=== PATIENT | female | born 1955 | race Hispanic/Latino ===

== ENCOUNTER 2021-11-13 12:36 | Emergency (ER) | payer OTHER, MEDICARE, SELFPAY ==
[2021-11-13] VITALS (37 sets, daily range): BP systolic 136–212; BP diastolic 69–95; PULSE 55–76; RESP 12–25; TEMP 36.6; O2SAT 95–100; BMI 30.7
--- NOTE | 2021-11-13 12:51 | DI.RAD.S_ITS ---
PROCEDURE: XR CHEST 1V INDICATIONS: chest pain TECHNIQUE: One view of the chest was acquired. COMPARISON: None. FINDINGS: Surgical changes and devices: None. Lungs and pleura: Lungs are clear. No pleural effusions or pneumothorax. Mediastinum: Mediastinal contours appear normal. Heart size is normal. Bones and chest wall: No suspicious bony lesions. Overlying soft tissues appear unremarkable. IMPRESSION: No acute cardiopulmonary abnormality. Dictated by: Marcial Lama M.D. on 11/13/2021 at 13:06 Approved by: Marcial Lama M.D. on 11/13/2021 at 13:12
[2021-11-13 13:45] LABS: Appearance Urine UA SL CLOUDY; Bilirubin Urine UA NEGATIVE (NEGATIVE); Color Urine UA YELLOW; Glucose Urine UA NEGATIVE (Negative); Ketones Urine UA NEGATIVE (NEGATIVE); Leukocyte Esterase Urine UA NEGATIVE (NEGATIVE); Nitrite Urine UA NEGATIVE (Negative); Occult Blood Urine UA NEGATIVE (Negative); Protein Urine UA NEGATIVE (Negative); Urobilinogen Urine UA 0.2 E.U./dL (0.2)
[2021-11-13 13:48] LABS: Add Manual Diff / Slide Review NO; Basophils Absolute Auto 100 /uL (0-100); Basophils Percent Auto 1.1 % (0-2); Eosinophils Absolute Auto 100 /uL (0-450); Hematocrit 39.5 % (36-46); Hemoglobin 13.4 g/dL (12.0-16.0); Lymphocytes Absolute Auto 1300 /uL (1100-4500); Lymphocytes Percent Auto 25.3 % (25-40); Mean Corpuscular HGB Conc 33.9 % (30-36); Mean Corpuscular Hemoglobin 29.9 PG (26-34); Mean Corpuscular Volume 88.4 fL (80-100); Monocytes Absolute Auto 300 /uL (0-900); Monocytes Percent Auto 6.4 % (3-14); Neutrophils Absolute Auto 3500 /uL (1500-7000); Neutrophils Percent Auto 66.2 % (50-75); Platelet Count 255 X10^3/uL (150-400); Red Blood Cell Count 4.47 X10^6/uL (4.0-5.2); Red Cell Distribution Width 13.5 % (11.6-14.8); White Blood Cell Count 5.2 X10^3/uL (4.5-11.0)
[2021-11-13 13:51] LABS: INR 4.2 (0.9-1.3); Prothrombin Time 49.2 SECONDS (10.1-12.7)
[2021-11-13 13:52] LABS: RBC Urine None Seen (0-5/HPF); Squamous Epithelial Cell Urine 1-5 /HPF (0-5/HPF); WBC Urine 1-5/HPF (0-5/HPF)
[2021-11-13 13:53] LABS: Bacteria Urine Occasional (0-1); Culture Indicated Urine Cult Not Indicated
[2021-11-13 13:58] LABS: Alanine Aminotransferase 17 IU/L (<35); Albumin 4.2 g/dL (3.5-5.0); Albumin Globulin Ratio 1.3 (1.0-2.8); Alkaline Phosphatase 64 U/L (38-126); Aspartate Aminotransferase 28 IU/L (14-36); BUN Creatinine Ratio 20.7 (6-22); Bilirubin Total 0.4 mg/dL (0.2-1.3); Blood Urea Nitrogen 18 mg/dL (7-17); Calcium 8.8 mg/dL (8.4-10.2); Carbon Dioxide 27 mmol/L (22-32); Chloride 107 mmol/L (98-107); Creatine Kinase 160 U/L (30-135); Estimated Glomerular Filt Rate > 60 mL/min (>60); Globulin 3.3 g/dL (1.7-4.1); Glucose 99 mg/dL (80-110); HEMOLYSIS < 15 (0-50); Lipase 129 U/L (23-300); Magnesium 2.2 mg/dL (1.6-2.3); Potassium 4.2 mmol/L (3.4-5.1); Sodium 140 mmol/L (137-145); Total Protein 7.5 g/dL (6.3-8.2)
[2021-11-13 14:02] LABS: COVID19 -Nasal RAPID Negative (Negative); PTT Partial Thromboplastin Tim 47 SECONDS (26-36)
[2021-11-13 14:12] LABS: CKMB % Relative Index 1.1 % (1.5-5.0)
--- NOTE | 2021-11-13 15:08 | ED_ITS ---
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 She actually lives in [place] she flew here about 10 days ago she drove to [place] drove home. Yesterday she noticed that she had mild chest discomfort on the left side she was able to rub it. She thought nothing of it. Today well all walking on flat ground she had chest tightness he was mildly short of breath. It did not quite go away but she was able to get back home and rest. She was then highly encouraged by family members to come to the ED for evaluation. She is no longer having any chest discomfort. Related Data Home Medications Medication Instructions Recorded Confirmed levothyroxine 88 mcg tablet 88 mcg PO DAILY 11/13/21 11/13/21 liothyronine 5 mcg tablet 5 mcg PO DAILY 11/13/21 11/13/21 montelukast 10 mg tablet 10 mg PO BEDTIME 11/13/21 11/13/21 warfarin 4 mg tablet 8 mg PO DAILY 11/13/21 11/13/21 Allergies Allergy/AdvReac Type Severity Reaction Status Date / Time benzocaine Allergy Verified 11/14/21 16:34 ciprofloxacin Allergy Verified 11/14/21 16:34 hydromorphone Allergy Verified 11/14/21 16:34 Iodinated Contrast Media Allergy Verified 11/14/21 16:34 levofloxacin Allergy Verified 11/14/21 16:34 ondansetron Allergy Verified 11/14/21 16:34 oxycodone Allergy Verified 11/14/21 16:34 tramadol Allergy Verified 11/14/21 16:34 trazodone Allergy Verified 11/14/21 16:34 ketorolac AdvReac Verified 11/14/21 16:34 Review of Systems <DO Subha Jules Last Filed: 11/14/21 19:23> Review of Systems Narrative: GENERAL: Denies chills, fatigue, malaise, fever, sweats, travel HEENT: Denies sinus pain, ear pain, sore throat, difficulty swallowing, neck pain RESPIRATORY: Denies dyspnea, cough, wheezing, hemoptysis, sputum. CARDIOVASCULAR: Denies chest pain, palpitations, orthopnea, edema GASTROINTESTINAL: Denies nausea, vomiting, abdominal pain, diarrhea, constipation, melena. : Denies dysuria, frequency, incontinence, hematuria, urinary retention, flank pain. MUSCULOSKELETAL: Denies weakness, joint pain, or bony pain SKIN: No rash, no erythema, no pruritus NEUROLOGIC: Denies weakness, dizziness, headache, numbness, change in speech, co nfusion PSYCHIATRIC: No concerning psychosocial issues. 12 point review of systems is negative except for those stated above and HPI Patient History <Fang Tse DO - Last Filed: 11/14/21 19:23> Social History Smoking Status: Former smoker Smoking Status: Former smoker alcohol intake frequency: holidays/special occasions only Substance Use Type: does not use Exam <Fang Tse DO - Last Filed: 11/14/21 19:23> Initial Vital Signs Initial Vital Signs: Vital Signs Temperature 97.8 F 11/13/21 12:44 Pulse Rate 67 11/13/21 12:44 Respiratory Rate 16 11/13/21 12:44 Blood Pressure 198/85 H 11/13/21 12:44 Pulse Oximetry 98 11/13/21 12:44 Oxygen Delivery Method 11/13/21 12:44 GENERAL: Alert pleasant 66-year-old female HEENT: Head atraumatic,EOMI, pupils reactive, face symmetric, moist mucous membranes CARDIOVASCULAR: Regular rate and rhythm without murmurs, rubs or gallops. RESPIRATORY: Breath sounds equal bilaterally, no wheezes rales or rhonchi. ABDOMEN: Soft, nontender. Normoactive bowel sounds all 4 quadrants. No guarding or rebound. EXTREMITIES: Normal range of motion, no clubbing or edema. Neurovascularly intact NEUROLOGICAL: Alert and oriented x4.Normal gait and speech. SKIN: Warm, dry, no laceration, no petechiae, no rashes or lesions. <Moise Phillips DO - Last Filed: 11/15/21 03:35> Initial Vital Signs Initial Vital Signs: Vital Signs Temperature 97.8 F 11/13/21 12:44 Pulse Rate 67 11/13/21 12:44 Respiratory Rate 16 11/13/21 12:44 Blood Pressure 198/85 H 11/13/21 12:44 Pulse Oximetry 98 11/13/21 12:44 Oxygen Delivery Method 11/13/21 12:44 Course <Fang Tse DO - Last Filed: 11/14/21 19:23> Orders Ordered: Discontinued Medications Acetaminophen (Acetaminophen 325 Mg Tablet) 650 mg PO NOW ONE Stop: 11/14/21 13:55 Last Admin: 11/14/21 14:00 Dose: 650 mg Documented By: AT Chlorthalidone (Chlorthalidone 25 Mg Tablet) 25 mg PO NOW ONE Stop: 11/13/21 19:19 Last Admin: 11/13/21 20:16 Dose: 25 mg Documented By: BS Chlorthalidone (Chlorthalidone 25 Mg Tablet) 25 mg PO NOW ONE Stop: 11/14/21 08:02 Last Admin: 11/14/21 08:13 Dose: 25 mg Documented By: AMU Heparin Sodium/Dextrose (Heparin Drip) 25,000 unit in 500 mls @ 20 mls/hr IV CONT LEEANNE; Protocol Last Titration: 11/14/21 19:17 Dose: 0 units/hr, 0 mls/hr Documented By: Titration: 11/14/21 15:17 Dose: 1,000 units/hr, 20 mls/hr Documented By: Admin: 11/14/21 08:02 Dose: 1,000 units/hr, 20 mls/hr Documented By: AMU Vital Signs Vital signs: Vital Signs - 8 hr 11/14/21 11:30 11/14/21 12:00 11/14/21 12:30 Pulse Rate 63 62 61 Respiratory Rate 16 21 16 Blood Pressure Pulse Oximetry 96 96 95 Oxygen Delivery Method 11/14/21 13:00 11/14/21 13:33 11/14/21 13:34 Pulse Rate 67 66 Respiratory Rate 17 12 Blood Pressure Pulse Oximetry 97 98 98 Oxygen Delivery Method 11/14/21 13:34 11/14/21 14:00 11/14/21 14:30 Pulse Rate 74 59 L Respiratory Rate 24 27 H Blood Pressure 147/76 H Pulse Oximetry 97 97 Oxygen Delivery Method 11/14/21 15:00 11/14/21 15:30 11/14/21 15:39 Pulse Rate 64 66 79 Respiratory Rate 24 19 40 H Blood Pressure Pulse Oximetry 97 96 97 Oxygen Delivery Method 11/14/21 15:39 11/14/21 16:00 11/14/21 16:00 Pulse Rate 74 Respiratory Rate 19 Blood Pressure 140/73 130/75 Pulse Oximetry 96 Oxygen Delivery Method 11/14/21 16:30 11/14/21 17:00 11/14/21 17:30 Pulse Rate 71 74 72 Respiratory Rate 21 11 L 22 Blood Pressure Pulse Oximetry 97 98 95 Oxygen Delivery Method 11/14/21 18:00 11/14/21 18:25 11/14/21 18:25 Pulse Rate 63 63 Respiratory Rate 30 H 25 H Blood Pressure 142/81 H Pulse Oximetry 97 97 Oxygen Delivery Method Room Air 11/14/21 18:30 Pulse Rate 62 Respiratory Rate 26 H Blood Pressure Pulse Oximetry 96 Oxygen Delivery Method <Moise Phillips DO - Last Filed: 11/15/21 03:35> Orders Ordered: Discontinued Medications Acetaminophen (Acetaminophen 325 Mg Tablet) 650 mg PO NOW ONE Stop: 11/14/21 13:55 Last Admin: 11/14/21 14:00 Dose: 650 mg Documented By: AT Chlorthalidone (Chlorthalidone 25 Mg Tablet) 25 mg PO NOW ONE Stop: 11/13/21 19:19 Last Admin: 11/13/21 20:16 Dose: 25 mg Documented By: BS Chlorthalidone (Chlorthalidone 25 Mg Tablet) 25 mg PO NOW ONE Stop: 11/14/21 08:02 Last Admin: 11/14/21 08:13 Dose: 25 mg Documented By: AMU Heparin Sodium/Dextrose (Heparin Drip) 25,000 unit in 500 mls @ 20 mls/hr IV CONT LEEANNE; Protocol Last Titration: 11/14/21 19:17 Dose: 0 units/hr, 0 mls/hr Documented By: Titration: 11/14/21 15:17 Dose: 1,000 units/hr, 20 mls/hr Documented By: Admin: 11/14/21 08:02 Dose: 1,000 units/hr, 20 mls/hr Documented By: AMU Vital Signs Vital signs: Vital Signs - 8 hr 11/14/21 11:30 11/14/21 12:00 11/14/21 12:30 Pulse Rate 63 62 61 Respiratory Rate 16 21 16 Blood Pressure Pulse Oximetry 96 96 95 Oxygen Delivery Method 11/14/21 13:00 11/14/21 13:33 11/14/21 13:34 Pulse Rate 67 66 Respiratory Rate 17 12 Blood Pressure Pulse Oximetry 97 98 98 Oxygen Delivery Method 11/14/21 13:34 11/14/21 14:00 11/14/21 14:30 Pulse Rate 74 59 L Respiratory Rate 24 27 H Blood Pressure 147/76 H Pulse Oximetry 97 97 Oxygen Delivery Method 11/14/21 15:00 11/14/21 15:30 11/14/21 15:39 Pulse Rate 64 66 79 Respiratory Rate 24 19 40 H Blood Pressure Pulse Oximetry 97 96 97 Oxygen Delivery Method 11/14/21 15:39 11/14/21 16:00 11/14/21 16:00 Pulse Rate 74 Respiratory Rate 19 Blood Pressure 140/73 130/75 Pulse Oximetry 96 Oxygen Delivery Method 11/14/21 16:30 11/14/21 17:00 11/14/21 17:30 Pulse Rate 71 74 72 Respiratory Rate 21 11 L 22 Blood Pressure Pulse Oximetry 97 98 95 Oxygen Delivery Method 11/14/21 18:00 11/14/21 18:25 11/14/21 18:25 Pulse Rate 63 63 Respiratory Rate 30 H 25 H Blood Pressure 142/81 H Pulse Oximetry 97 97 Oxygen Delivery Method Room Air 11/14/21 18:30 Pulse Rate 62 Respiratory Rate 26 H Blood Pressure Pulse Oximetry 96 Oxygen Delivery Method MDM - Chest Pain <Fang Tse, DO - Last Filed: 11/14/21 19:23> Lab Data Result diagrams: 11/14/21 06:10 11/14/21 06:10 Labs: Lab Results 11/13/21 11/13/21 11/13/21 Range/Units 13:27 13:27 13:27 WBC 5.2 (4.5-11.0) X10^3/uL RBC 4.47 (4.0-5.2) X10^6/uL Hgb 13.4 (12.0-16.0) g/dL Hct 39.5 (36-46) % MCV 88.4 (80-100) fL MCH 29.9 (26-34) PG MCHC 33.9 (30-36) % RDW 13.5 (11.6-14.8) % Plt Count 255 (150-400) X10^3/uL Neut % (Auto) 66.2 (50-75) % Lymph % (Auto) 25.3 (25-40) % [place] % (Auto) 6.4 (3-14) % Eos % (Auto) 1.0 L (2-4) % Baso % (Auto) 1.1 (0-2) % Neut # (Auto) 3500 (2449-3624) /uL Lymph # (Auto) 1300 (8461-7789) /uL [place] # (Auto) 300 (0-900) /uL Eos # (Auto) 100 (0-450) /uL Baso # (Auto) 100 (0-100) /uL PT (10.1-12.7) SECONDS INR (0.9-1.3) APTT 47 H (26-36) SECONDS Sodium (137-145) mmol/L Potassium (3.4-5.1) mmol/L Chloride (98-107) mmol/L Carbon Dioxide (22-32) mmol/L BUN (7-17) mg/dL Creatinine (0.52-1.04) mg/dL Estimated GFR (>60) mL/min BUN/Creatinine Ratio (6-22) Glucose (80-110) mg/dL Calcium (8.4-10.2) mg/dL Magnesium (1.6-2.3) mg/dL Total Bilirubin (0.2-1.3) mg/dL AST (14-36) IU/L ALT (<35) IU/L Alkaline Phosphatase (38-126) U/L Total Creatine Kinase (30-135) U/L CK-MB (CK-2) (<2.37) ng/mL CK-MB (CK-2) Rel Index (1.5-5.0) % Troponin I (0.01-0.034) ng/mL NT-Pro-B Natriuret Pep (<125) pg/mL Total Protein (6.3-8.2) g/dL Albumin (3.5-5.0) g/dL Globulin (1.7-4.1) g/dL Albumin/Globulin Ratio (1.0-2.8) Lipase (23-300) U/L Urine Color Urine Appearance Urine pH (4.5-8.0) Ur Specific [place] (1.000-1.035) Urine Protein (Negative) Urine Glucose (UA) (Negative) g/dL Urine Ketones (NEGATIVE) Urine Occult Blood (Negative) Urine Nitrate (Negative) Urine Bilirubin (NEGATIVE) Urine Urobilinogen (0.2) E.U./dL Ur Leukocyte Esterase (NEGATIVE) Urine RBC (0-5/HPF) Urine WBC (0-5/HPF) Ur Squamous Epith Cells (0-5/HPF) Urine Bacteria (None) Ur Culture Indicated? SARS-CoV-2 (PCR) Negative (Negative) 11/13/21 11/13/21 11/13/21 Range/Units 13:27 13:27 13:27 WBC (4.5-11.0) X10^3/uL RBC (4.0-5.2) X10^6/uL Hgb (12.0-16.0) g/dL Hct (36-46) % MCV (80-100) fL MCH (26-34) PG MCHC (30-36) % RDW (11.6-14.8) % Plt Count (150-400) X10^3/uL Neut % (Auto) (50-75) % Lymph % (Auto) (25-40) % [place] % (Auto) (3-14) % Eos % (Auto) (2-4) % Baso % (Auto) (0-2) % Neut # (Auto) (7919-5469) /uL Lymph # (Auto) (2936-3928) /uL [place] # (Auto) (0-900) /uL Eos # (Auto) (0-450) /uL Baso # (Auto) (0-100) /uL PT 49.2 H (10.1-12.7) SECONDS INR 4.2 H (0.9-1.3) APTT (26-36) SECONDS Sodium 140 (137-145) mmol/L Potassium 4.2 (3.4-5.1) mmol/L Chloride 107 (98-107) mmol/L Carbon Dioxide 27 (22-32) mmol/L BUN 18 H (7-17) mg/dL Creatinine 0.87 (0.52-1.04) mg/dL Estimated GFR > 60 (>60) mL/min BUN/Creatinine Ratio 20.7 (6-22) Glucose 99 (80-110) mg/dL Calcium 8.8 (8.4-10.2) mg/dL Magnesium 2.2 (1.6-2.3) mg/dL Total Bilirubin 0.4 (0.2-1.3) mg/dL AST 28 (14-36) IU/L ALT 17 (<35) IU/L Alkaline Phosphatase 64 (38-126) U/L Total Creatine Kinase 160 H (30-135) U/L CK-MB (CK-2) 1.80 (<2.37) ng/mL CK-MB (CK-2) Rel Index 1.1 L (1.5-5.0) % Troponin I 0.060 H (0.01-0.034) ng/mL NT-Pro-B Natriuret Pep (<125) pg/mL Total Protein 7.5 (6.3-8.2) g/dL Albumin 4.2 (3.5-5.0) g/dL Globulin 3.3 (1.7-4.1) g/dL Albumin/Globulin Ratio 1.3 (1.0-2.8) Lipase 129 (23-300) U/L Urine Color Yellow Urine Appearance Sl cloudy Urine pH 6.0 (4.5-8.0) Ur Specific [place] 1.020 (1.000-1.035) Urine Protein Negative (Negative) Urine Glucose (UA) Negative (Negative) g/dL Urine Ketones Negative (NEGATIVE) Urine Occult Blood Negative (Negative) Urine Nitrate Negative (Negative) Urine Bilirubin Negative (NEGATIVE) Urine Urobilinogen 0.2 (0.2) E.U./dL Ur Leukocyte Esterase Negative (NEGATIVE) Urine RBC None seen (0-5/HPF) Urine WBC 1-5/hpf (0-5/HPF) Ur Squamous Epith Cells 1-5 /hpf (0-5/HPF) Urine Bacteria Occasional (0-1) (None) Ur Culture Indicated? Cult not indicated SARS-CoV-2 (PCR) (Negative) 11/13/21 11/13/21 11/13/21 Range/Units 15:08 15:08 18:00 WBC (4.5-11.0) X10^3/uL RBC (4.0-5.2) X10^6/uL Hgb (12.0-16.0) g/dL Hct (36-46) % MCV (80-100) fL MCH (26-34) PG MCHC (30-36) % RDW (11.6-14.8) % Plt Count (150-400) X10^3/uL Neut % (Auto) (50-75) % Lymph % (Auto) (25-40) % [place] % (Auto) (3-14) % Eos % (Auto) (2-4) % Baso % (Auto) (0-2) % Neut # (Auto) (1872-1233) /uL Lymph # (Auto) (6470-5079) /uL [place] # (Auto) (0-900) /uL Eos # (Auto) (0-450) /uL Baso # (Auto) (0-100) /uL PT (10.1-12.7) SECONDS INR (0.9-1.3) APTT (26-36) SECONDS Sodium (137-145) mmol/L Potassium (3.4-5.1) mmol/L Chloride (98-107) mmol/L Carbon Dioxide (22-32) mmol/L BUN (7-17) mg/dL Creatinine (0.52-1.04) mg/dL Estimated GFR (>60) mL/min BUN/Creatinine Ratio (6-22) Glucose (80-110) mg/dL Calcium (8.4-10.2) mg/dL Magnesium (1.6-2.3) mg/dL Total Bilirubin (0.2-1.3) mg/dL AST (14-36) IU/L ALT (<35) IU/L Alkaline Phosphatase (38-126) U/L Total Creatine Kinase Cancelled (30-135) U/L CK-MB (CK-2) Cancelled (<2.37) ng/mL CK-MB (CK-2) Rel Index Cancelled (1.5-5.0) % Troponin I 0.075 H Cancelled 0.191 H* (0.01-0.034) ng/mL NT-Pro-B Natriuret Pep 148 H (<125) pg/mL Total Protein (6.3-8.2) g/dL Albumin (3.5-5.0) g/dL Globulin (1.7-4.1) g/dL Albumin/Globulin Ratio (1.0-2.8) Lipase (23-300) U/L Urine Color Urine Appearance Urine pH (4.5-8.0) Ur Specific [place] (1.000-1.035) Urine Protein (Negative) Urine Glucose (UA) (Negative) g/dL Urine Ketones (NEGATIVE) Urine Occult Blood (Negative) Urine Nitrate (Negative) Urine Bilirubin (NEGATIVE) Urine Urobilinogen (0.2) E.U./dL Ur Leukocyte Esterase (NEGATIVE) Urine RBC (0-5/HPF) Urine WBC (0-5/HPF) Ur Squamous Epith Cells (0-5/HPF) Urine Bacteria (None) Ur Culture Indicated? SARS-CoV-2 (PCR) (Negative) 11/14/21 11/14/21 11/14/21 Range/Units 06:10 06:10 06:10 WBC 4.3 L (4.5-11.0) X10^3/uL RBC 4.54 (4.0-5.2) X10^6/uL Hgb 13.8 (12.0-16.0) g/dL Hct 39.9 (36-46) % MCV 88.0 (80-100) fL MCH 30.4 (26-34) PG MCHC 34.5 (30-36) % RDW 13.7 (11.6-14.8) % Plt Count 239 (150-400) X10^3/uL Neut % (Auto) 56.9 (50-75) % Lymph % (Auto) 33.2 (25-40) % [place] % (Auto) 7.2 (3-14) % Eos % (Auto) 2.1 (2-4) % Baso % (Auto) 0.6 (0-2) % Neut # (Auto) 2400 (4336-4136) /uL Lymph # (Auto) 1400 (3328-0340) /uL [place] # (Auto) 300 (0-900) /uL Eos # (Auto) 100 (0-450) /uL Baso # (Auto) 0 (0-100) /uL PT 36.7 H D (10.1-12.7) SECONDS INR 3.2 H (0.9-1.3) APTT (26-36) SECONDS Sodium 140 (137-145) mmol/L Potassium 3.9 (3.4-5.1) mmol/L Chloride 105 (98-107) mmol/L Carbon Dioxide 28 (22-32) mmol/L BUN 15 (7-17) mg/dL Creatinine 0.93 (0.52-1.04) mg/dL Estimated GFR > 60 (>60) mL/min BUN/Creatinine Ratio 16.1 (6-22) Glucose 98 (80-110) mg/dL Calcium 9.1 (8.4-10.2) mg/dL Magnesium (1.6-2.3) mg/dL Total Bilirubin 0.7 (0.2-1.3) mg/dL AST 34 (14-36) IU/L ALT 18 (<35) IU/L Alkaline Phosphatase 64 (38-126) U/L Total Creatine Kinase (30-135) U/L CK-MB (CK-2) (<2.37) ng/mL CK-MB (CK-2) Rel Index (1.5-5.0) % Troponin I 1.200 H* (0.01-0.034) ng/mL NT-Pro-B Natriuret Pep (<125) pg/mL Total Protein 7.5 (6.3-8.2) g/dL Albumin 4.2 (3.5-5.0) g/dL Globulin 3.3 (1.7-4.1) g/dL Albumin/Globulin Ratio 1.3 (1.0-2.8) Lipase (23-300) U/L Urine Color Urine Appearance Urine pH (4.5-8.0) Ur Specific [place] (1.000-1.035) Urine Protein (Negative) Urine Glucose (UA) (Negative) g/dL Urine Ketones (NEGATIVE) Urine Occult Blood (Negative) Urine Nitrate (Negative) Urine Bilirubin (NEGATIVE) Urine Urobilinogen (0.2) E.U./dL Ur Leukocyte Esterase (NEGATIVE) Urine RBC (0-5/HPF) Urine WBC (0-5/HPF) Ur Squamous Epith Cells (0-5/HPF) Urine Bacteria (None) Ur Culture Indicated? SARS-CoV-2 (PCR) (Negative) 11/14/21 11/14/21 Range/Units 07:30 14:30 WBC (4.5-11.0) X10^3/uL RBC (4.0-5.2) X10^6/uL Hgb (12.0-16.0) g/dL Hct (36-46) % MCV (80-100) fL MCH (26-34) PG MCHC (30-36) % RDW (11.6-14.8) % Plt Count (150-400) X10^3/uL Neut % (Auto) (50-75) % Lymph % (Auto) (25-40) % [place] % (Auto) (3-14) % Eos % (Auto) (2-4) % Baso % (Auto) (0-2) % Neut # (Auto) (6547-5895) /uL Lymph # (Auto) (3859-7561) /uL [place] # (Auto) (0-900) /uL Eos # (Auto) (0-450) /uL Baso # (Auto) (0-100) /uL PT (10.1-12.7) SECONDS INR (0.9-1.3) APTT 84 H* D (26-36) SECONDS Sodium (137-145) mmol/L Potassium (3.4-5.1) mmol/L Chloride (98-107) mmol/L Carbon Dioxide (22-32) mmol/L BUN (7-17) mg/dL Creatinine (0.52-1.04) mg/dL Estimated GFR (>60) mL/min BUN/Creatinine Ratio (6-22) Glucose (80-110) mg/dL Calcium (8.4-10.2) mg/dL Magnesium (1.6-2.3) mg/dL Total Bilirubin (0.2-1.3) mg/dL AST (14-36) IU/L ALT (<35) IU/L Alkaline Phosphatase (38-126) U/L Total Creatine Kinase 170 H (30-135) U/L CK-MB (CK-2) 5.90 H D (<2.37) ng/mL CK-MB (CK-2) Rel Index 3.5 (1.5-5.0) % Troponin I 1.010 H* (0.01-0.034) ng/mL NT-Pro-B Natriuret Pep (<125) pg/mL Total Protein (6.3-8.2) g/dL Albumin (3.5-5.0) g/dL Globulin (1.7-4.1) g/dL Albumin/Globulin Ratio (1.0-2.8) Lipase (23-300) U/L Urine Color Urine Appearance Urine pH (4.5-8.0) Ur Specific [place] (1.000-1.035) Urine Protein (Negative) Urine Glucose (UA) (Negative) g/dL Urine Ketones (NEGATIVE) Urine Occult Blood (Negative) Urine Nitrate (Negative) Urine Bilirubin (NEGATIVE) Urine Urobilinogen (0.2) E.U./dL Ur Leukocyte Esterase (NEGATIVE) Urine RBC (0-5/HPF) Urine WBC (0-5/HPF) Ur Squamous Epith Cells (0-5/HPF) Urine Bacteria (None) Ur Culture Indicated? SARS-CoV-2 (PCR) (Negative) Imaging Data Chest x-ray: Radiologist's Impression: XRay Report Signed Patient: Jeny Canas MR#: [id number] : 1955 Acct:[id number] Age/Sex: 66 / F Date of Service: 11/13/21 Loc: ED Accession Number: [id number] ?? Procedure: XR chest 1V Ordering Provider: Fang Tse D.O. PROCEDURE:? XR CHEST 1V ? INDICATIONS:? chest pain ? TECHNIQUE:? One view of the chest was acquired.? ? COMPARISON:? None. ? FINDINGS:? ? Surgical changes and devices:? None.? ? Lungs and pleura:? Lungs are clear.? No pleural effusions or pneumothorax.? ? Mediastinum:? Mediastinal contours appear normal.? Heart size is normal.? ? Bones and chest wall:? No suspicious bony lesions.? Overlying soft tissues appear unremarkable.? ? IMPRESSION:? No acute cardiopulmonary abnormality. ? ? Dictated by: Marcial Lama M.D. on 11/13/2021 at 13:06 ? ? CT scan - chest: Radiologist's Impression: CT Scan Report Signed Patient: Jeny Canas MR#: [id number] : 1955 Acct:[id number] Age/Sex: 66 / F Date of Service: 11/13/21 Loc: ED Accession Number: [id number] ?? Procedure: CT angio chest PE protocol Ordering Provider: Botnick,Fang D.O. PROCEDURE:? CT ANGIO CHEST PE PROTOCOL ? INDICATIONS:? chest pain sob with hx multiple PE ? TECHNIQUE:? After the administration of intravenous contrast, 2 mm thick sections acquired from the pulmonary apices to the posterior costophrenic angles.? For radiation dose re duction, the following was used:? automated exposure control, adjustment of mA and/or kV according to patient size.? ? COMPARISON:? None. ? FINDINGS:? Image quality:? Excellent.? ? Pulmonary arteries:? Pulmonary arteries are normal in size, and demonstrate no intraluminal filling defects to suggest central pulmonary embolism.? ? Lungs and pleura:? Lungs are clear.? No pleural effusions or pneumothorax.? Central and peripheral airways are patent.? ? Mediastinum:? Heart size is normal, without pericardial effusion.? No mediastinal or hilar adenopathy.? Thoracic aorta is normal in caliber and enhancement.? Esophagus is normal in caliber, without hiatal hernia.? ? Bones and chest wall:? No suspicious bony lesions.? Ribs and thoracic spine appear intact throughout.? Thyroid gland unremarkable.? No axillary or supraclavicular adenopathy.? ? Abdomen:? Visualized upper abdominal solid organs appear normal in the early arterial phase of enhancement.? ? IMPRESSION:? ? Unremarkable CT chest angiogram.? No evidence of pulmonary embolism, aortic dissection or aneurysm. ? ? ? Approved by: Smith Wilson M.D. on 11/13/2021 at 15:41? Echo 11/14/21: Radiologist's Impression: vider: Fang Tse D.O. [facility]? +---------+ : ? :? [address] ? : ? : : ? :? [place], [place] ? : ? : : ? :? [id number] ? : ? : : ? : ? Phone: [phone] : ? : [phone]? [phone]? +---------+ ? Echocardiogram Report + + :Name: JENY CANAS? Study Date: 11/14/2021 ? Height: 66 in? : :[facility] ? ? ReadingLocation: ? Weight: 190 lb : : ? Gender: Female ? BSA: 2.0 m2? ? : :: 1955? Age: 66 yrs? BP: 139/73 mmHg: :Reason For Study: NSTEMI ? : :Ordering Physician: DEDRICK, ? : :FANG ? Performed By: Zara Giordano? : :Referring: FANG TSE ? : + + Interpretation Summary 1) Normal left ventricular thickness, size, wall motion, and systolic function (EF 55-60%). 2) The right ventricle is not well visualized. The right ventricle grossly appears normal in size with probable normal systolic function. 3) No significant valvular abnormalities. 4) No prior Echo available for comparison. ? Procedure: ? A two-dimensional transthoracic echocardiogram with color flow and Doppler was performed. The study quality was technically adequate. There is no prior echocardiogram noted for this patient. The patient was in sinus rhythm with heart rates between 53-68 bpm during the exam. Left Ventricle: ? The left ventricle is normal in size and wall thickness. The ejection fraction is estimated to be 55-60%. Left ventricular systolic function appears normal without focal wall motion abnormalities. Right Ventricle: ? The right ventricle is not well visualized. The right ventricle grossly appears normal in size with probable normal systolic function. Atria: ? The left atrial size is normal. Right atrial size is normal. There is no Doppler evidence for an interatrial shunt. Mitral Valve: ? The mitral valve is normal in structure and function. There is mild mitral annular calcification. There is no mitral regurgitation noted. Aortic Valve: ? The aortic valve is trileaflet. The aortic valve opens well. There is no aortic valve stenosis. No aortic regurgitation is present. Tricuspid Valve: ? The tricuspid valve is normal in structure and function. There is trace tricuspid regurgitation. Pulmonary artery pressures cannot be estimated because of the lack of a measurable TR jet velocity. Pulmonic Valve: ? The pulmonic valve is not well visualized. There is no pulmonic valvular regurgitation. Great Vessels: ? The aortic root is normal size. The dimensions of the ascending aorta are normal. The IVC is of normal diameter and collapses greater than 50% with a sniff. This suggests a low right atrial pressure of 3 mm Hg. Pericardium/ Pleura ? There is no pericardial effusion. There is no pleural effusion. ? MMode/2D Measurements & Calculations LVIDd: 4.5 cm? LVOT diam: 2.0 cm LVIDs: 2.8 cm? Ao root diam: 3.2 cm FS: 38.7 % ? asc Aorta Diam: 3.0 cm IVSd: 0.98 cm? Ao Arch Diam (Prox Trans): 2.3 cm LVPWd: 1.0 cm LV perdomo. diameter/BSA (cm/m^2): 2.3 LV sys. diameter/BSA (cm/m^2): 1.4 ? LA A2 area: 19.4 cm2 ? RA long axis: 4.9 cm LA A4 area: 17.3 cm2 ? RA area: 15.8 cm2 LA length (vol): 4.8 cm? RA vol: 43.2 ml LA vol: 58.9 ml? RA : 22.1 ml/m2 LA vol index: 30.1 ml/m2 ? IVC diam: 1.5 cm ? Doppler Measurements & Calculations Ao V2 max: 98.7 cm/sec? LVOT Max Arley: 70.3 cm/sec Ao V2 mean: 68.7 cm/sec ? LV V1 max P.0 mmHg Ao max P.9 mmHg ? LV V1 VTI: 17.1 cm Ao mean P.1 mmHg? JORDON(I,D): 2.6 cm2 Ao V2 VTI: 19.6 cm? JORDON(V,D): 2.2 cm2 ? sev ratio: 0.87 ? JORDON indexed to BSA (cm^2/m^2): 1.3 ? MV E max arley: 48.4 cm/sec ? PA V2 max: 86.4 cm/sec MV A max arley: 53.1 cm/sec ? PA V2 mean: 61.7 cm/sec MV E/A: 0.91? PA mean P.7 mmHg Med Peak E' Arley: 6.7 cm/sec ? ? ? PA pr(Accel): 20.8 mmHg E/E' med: 7.2 Lat Peak E' Arley: 9.0 cm/sec E/E' lat: 5.4 E/e' average: 6.3 MV dec time: 0.26 sec ? SV(LVOT): 51.7 ml ? Reading Physician:[id number] AM ECG Data Interpretation: EKG 1. Normal sinus rhythm rate 61 ID interval 134 QRS 74 QTC 410 small T-wave inversion noted in the [address] elevations or depressions no priors to compare Repeat EKG more pronounced T wave inversion in lead V 3 [address] changes t MDM Narrative Medical decision making narrative: Patient's symptoms are certainly concerning for acute coronary syndrome. She is also found to be quite hypertensive. Initial troponin is indeterminate however vising 3rd troponin is positive at 0.19. Blood pressure is quite variable but remains elevated. Patient remains be here in the emergency department. She has coagulopathy with history of multiple PEs requiring extremely high dose of Couma din up to 16 mg of warfarin daily. INR today is 4.2. CT angio is negative for PE. 1899 Dr. Salmeron, Cardiology has been updated patient's symptoms and test results. At this time her situation is slightly tricky but does recommend cardiac catheterization. Recommends holding warfarin and starting heparin when INR is 3 or less. Also recommends hydralazine and chlorthalidone and for blood pressure control. Contraindication for labetalol with decreased heart rate. Patient being placed on multiple list for transfer. However severe critical bed shortage and high unlikely. [1999] (Alan) Patient received in sign out from [Dedrick]. I have reviewed the clinical course and performed an independent history and physical exam. 11/14/2021 Dedrick Patient signed out to me this morning. No events overnight. Troponin this morning at 1.2 but is actually trending down to 1.0. Patient remains chest pain-free in the emergency department. INR this morning was 0.2 started on heparin drip. Continuation on attempting to transfer for NSTEMI 1600 Dr. Santos cardiology at [facility] held updated patient's symptoms test results recommends admission to hospitalist team [id number]-Dr. Chance hospitalist accepts patient <Moise Phillips DO - Last Filed: 11/15/21 03:35> Lab Data Labs: Lab Results 11/13/21 11/13/21 11/13/21 Range/Units 13:27 13:27 13:27 WBC 5.2 (4.5-11.0) X10^3/uL RBC 4.47 (4.0-5.2) X10^6/uL Hgb 13.4 (12.0-16.0) g/dL Hct 39.5 (36-46) % MCV 88.4 (80-100) fL MCH 29.9 (26-34) PG MCHC 33.9 (30-36) % RDW 13.5 (11.6-14.8) % Plt Count 255 (150-400) X10^3/uL Neut % (Auto) 66.2 (50-75) % Lymph % (Auto) 25.3 (25-40) % [place] % (Auto) 6.4 (3-14) % Eos % (Auto) 1.0 L (2-4) % Baso % (Auto) 1.1 (0-2) % Neut # (Auto) 3500 (1212-2934) /uL Lymph # (Auto) 1300 (3635-5006) /uL [place] # (Auto) 300 (0-900) /uL Eos # (Auto) 100 (0-450) /uL Baso # (Auto) 100 (0-100) /uL PT (10.1-12.7) SECONDS INR (0.9-1.3) APTT 47 H (26-36) SECONDS Sodium (137-145) mmol/L Potassium (3.4-5.1) mmol/L Chloride (98-107) mmol/L Carbon Dioxide (22-32) mmol/L BUN (7-17) mg/dL Creatinine (0.52-1.04) mg/dL Estimated GFR (>60) mL/min BUN/Creatinine Ratio (6-22) Glucose (80-110) mg/dL Calcium (8.4-10.2) mg/dL Magnesium (1.6-2.3) mg/dL Total Bilirubin (0.2-1.3) mg/dL AST (14-36) IU/L ALT (<35) IU/L Alkaline Phosphatase (38-126) U/L Total Creatine Kinase (30-135) U/L CK-MB (CK-2) (<2.37) ng/mL CK-MB (CK-2) Rel Index (1.5-5.0) % Troponin I (0.01-0.034) ng/mL NT-Pro-B Natriuret Pep (<125) pg/mL Total Protein (6.3-8.2) g/dL Albumin (3.5-5.0) g/dL Globulin (1.7-4.1) g/dL Albumin/Globulin Ratio (1.0-2.8) Lipase (23-300) U/L Urine Color Urine Appearance Urine pH (4.5-8.0) Ur Specific [place] (1.000-1.035) Urine Protein (Negative) Urine Glucose (UA) (Negative) g/dL Urine Ketones (NEGATIVE) Urine Occult Blood (Negative) Urine Nitrate (Negative) Urine Bilirubin (NEGATIVE) Urine Urobilinogen (0.2) E.U./dL Ur Leukocyte Esterase (NEGATIVE) Urine RBC (0-5/HPF) Urine WBC (0-5/HPF) Ur Squamous Epith Cells (0-5/HPF) Urine Bacteria (None) Ur Culture Indicated? SARS-CoV-2 (PCR) Negative (Negative) 11/13/21 11/13/21 11/13/21 Range/Units 13:27 13:27 13:27 WBC (4.5-11.0) X10^3/uL RBC (4.0-5.2) X10^6/uL Hgb (12.0-16.0) g/dL Hct (36-46) % MCV (80-100) fL MCH (26-34) PG MCHC (30-36) % RDW (11.6-14.8) % Plt Count (150-400) X10^3/uL Neut % (Auto) (50-75) % Lymph % (Auto) (25-40) % [place] % (Auto) (3-14) % Eos % (Auto) (2-4) % Baso % (Auto) (0-2) % Neut # (Auto) (6291-3889) /uL Lymph # (Auto) (9238-7867) /uL [place] # (Auto) (0-900) /uL Eos # (Auto) (0-450) /uL Baso # (Auto) (0-100) /uL PT 49.2 H (10.1-12.7) SECONDS INR 4.2 H (0.9-1.3) APTT (26-36) SECONDS Sodium 140 (137-145) mmol/L Potassium 4.2 (3.4-5.1) mmol/L Chloride 107 (98-107) mmol/L Carbon Dioxide 27 (22-32) mmol/L BUN 18 H (7-17) mg/dL Creatinine 0.87 (0.52-1.04) mg/dL Estimated GFR > 60 (>60) mL/min BUN/Creatinine Ratio 20.7 (6-22) Glucose 99 (80-110) mg/dL Calcium 8.8 (8.4-10.2) mg/dL Magnesium 2.2 (1.6-2.3) mg/dL Total Bilirubin 0.4 (0.2-1.3) mg/dL AST 28 (14-36) IU/L ALT 17 (<35) IU/L Alkaline Phosphatase 64 (38-126) U/L Total Creatine Kinase 160 H (30-135) U/L CK-MB (CK-2) 1.80 (<2.37) ng/mL CK-MB (CK-2) Rel Index 1.1 L (1.5-5.0) % Troponin I 0.060 H (0.01-0.034) ng/mL NT-Pro-B Natriuret Pep (<125) pg/mL Total Protein 7.5 (6.3-8.2) g/dL Albumin 4.2 (3.5-5.0) g/dL Globulin 3.3 (1.7-4.1) g/dL Albumin/Globulin Ratio 1.3 (1.0-2.8) Lipase 129 (23-300) U/L Urine Color Yellow Urine Appearance Sl cloudy Urine pH 6.0 (4.5-8.0) Ur Specific [place] 1.020 (1.000-1.035) Urine Protein Negative (Negative) Urine Glucose (UA) Negative (Negative) g/dL Urine Ketones Negative (NEGATIVE) Urine Occult Blood Negative (Negative) Urine Nitrate Negative (Negative) Urine Bilirubin Negative (NEGATIVE) Urine Urobilinogen 0.2 (0.2) E.U./dL Ur Leukocyte Esterase Negative (NEGATIVE) Urine RBC None seen (0-5/HPF) Urine WBC 1-5/hpf (0-5/HPF) Ur Squamous Epith Cells 1-5 /hpf (0-5/HPF) Urine Bacteria Occasional (0-1) (None) Ur Culture Indicated? Cult not indicated SARS-CoV-2 (PCR) (Negative) 11/13/21 11/13/21 11/13/21 Range/Units 15:08 15:08 18:00 WBC (4.5-11.0) X10^3/uL RBC (4.0-5.2) X10^6/uL Hgb (12.0-16.0) g/dL Hct (36-46) % MCV (80-100) fL MCH (26-34) PG MCHC (30-36) % RDW (11.6-14.8) % Plt Count (150-400) X10^3/uL Neut % (Auto) (50-75) % Lymph % (Auto) (25-40) % [place] % (Auto) (3-14) % Eos % (Auto) (2-4) % Baso % (Auto) (0-2) % Neut # (Auto) (1300-2544) /uL Lymph # (Auto) (1088-5338) /uL [place] # (Auto) (0-900) /uL Eos # (Auto) (0-450) /uL Baso # (Auto) (0-100) /uL PT (10.1-12.7) SECONDS INR (0.9-1.3) APTT (26-36) SECONDS Sodium (137-145) mmol/L Potassium (3.4-5.1) mmol/L Chloride (98-107) mmol/L Carbon Dioxide (22-32) mmol/L BUN (7-17) mg/dL Creatinine (0.52-1.04) mg/dL Estimated GFR (>60) mL/min BUN/Creatinine Ratio (6-22) Glucose (80-110) mg/dL Calcium (8.4-10.2) mg/dL Magnesium (1.6-2.3) mg/dL Total Bilirubin (0.2-1.3) mg/dL AST (14-36) IU/L ALT (<35) IU/L Alkaline Phosphatase (38-126) U/L Total Creatine Kinase Cancelled (30-135) U/L CK-MB (CK-2) Cancelled (<2.37) ng/mL CK-MB (CK-2) Rel Index Cancelled (1.5-5.0) % Troponin I 0.075 H Cancelled 0.191 H* (0.01-0.034) ng/mL NT-Pro-B Natriuret Pep 148 H (<125) pg/mL Total Protein (6.3-8.2) g/dL Albumin (3.5-5.0) g/dL Globulin (1.7-4.1) g/dL Albumin/Globulin Ratio (1.0-2.8) Lipase (23-300) U/L Urine Color Urine Appearance Urine pH (4.5-8.0) Ur Specific [place] (1.000-1.035) Urine Protein (Negative) Urine Glucose (UA) (Negative) g/dL Urine Ketones (NEGATIVE) Urine Occult Blood (Negative) Urine Nitrate (Negative) Urine Bilirubin (NEGATIVE) Urine Urobilinogen (0.2) E.U./dL Ur Leukocyte Esterase (NEGATIVE) Urine RBC (0-5/HPF) Urine WBC (0-5/HPF) Ur Squamous Epith Cells (0-5/HPF) Urine Bacteria (None) Ur Culture Indicated? SARS-CoV-2 (PCR) (Negative) 11/14/21 11/14/21 11/14/21 Range/Units 06:10 06:10 06:10 WBC 4.3 L (4.5-11.0) X10^3/uL RBC 4.54 (4.0-5.2) X10^6/uL Hgb 13.8 (12.0-16.0) g/dL Hct 39.9 (36-46) % MCV 88.0 (80-100) fL MCH 30.4 (26-34) PG MCHC 34.5 (30-36) % RDW 13.7 (11.6-14.8) % Plt Count 239 (150-400) X10^3/uL Neut % (Auto) 56.9 (50-75) % Lymph % (Auto) 33.2 (25-40) % [place] % (Auto) 7.2 (3-14) % Eos % (Auto) 2.1 (2-4) % Baso % (Auto) 0.6 (0-2) % Neut # (Auto) 2400 (0762-7107) /uL Lymph # (Auto) 1400 (4847-8595) /uL [place] # (Auto) 300 (0-900) /uL Eos # (Auto) 100 (0-450) /uL Baso # (Auto) 0 (0-100) /uL PT 36.7 H D (10.1-12.7) SECONDS INR 3.2 H (0.9-1.3) APTT (26-36) SECONDS Sodium 140 (137-145) mmol/L Potassium 3.9 (3.4-5.1) mmol/L Chloride 105 (98-107) mmol/L Carbon Dioxide 28 (22-32) mmol/L BUN 15 (7-17) mg/dL Creatinine 0.93 (0.52-1.04) mg/dL Estimated GFR > 60 (>60) mL/min BUN/Creatinine Ratio 16.1 (6-22) Glucose 98 (80-110) mg/dL Calcium 9.1 (8.4-10.2) mg/dL Magnesium (1.6-2.3) mg/dL Total Bilirubin 0.7 (0.2-1.3) mg/dL AST 34 (14-36) IU/L ALT 18 (<35) IU/L Alkaline Phosphatase 64 (38-126) U/L Total Creatine Kinase (30-135) U/L CK-MB (CK-2) (<2.37) ng/mL CK-MB (CK-2) Rel Index (1.5-5.0) % Troponin I 1.200 H* (0.01-0.034) ng/mL NT-Pro-B Natriuret Pep (<125) pg/mL Total Protein 7.5 (6.3-8.2) g/dL Albumin 4.2 (3.5-5.0) g/dL Globulin 3.3 (1.7-4.1) g/dL Albumin/Globulin Ratio 1.3 (1.0-2.8) Lipase (23-300) U/L Urine Color Urine Appearance Urine pH (4.5-8.0) Ur Specific [place] (1.000-1.035) Urine Protein (Negative) Urine Glucose (UA) (Negative) g/dL Urine Ketones (NEGATIVE) Urine Occult Blood (Negative) Urine Nitrate (Negative) Urine Bilirubin (NEGATIVE) Urine Urobilinogen (0.2) E.U./dL Ur Leukocyte Esterase (NEGATIVE) Urine RBC (0-5/HPF) Urine WBC (0-5/HPF) Ur Squamous Epith Cells (0-5/HPF) Urine Bacteria (None) Ur Culture Indicated? SARS-CoV-2 (PCR) (Negative) 11/14/21 11/14/21 Range/Units 07:30 14:30 WBC (4.5-11.0) X10^3/uL RBC (4.0-5.2) X10^6/uL Hgb (12.0-16.0) g/dL Hct (36-46) % MCV (80-100) fL MCH (26-34) PG MCHC (30-36) % RDW (11.6-14.8) % Plt Count (150-400) X10^3/uL Neut % (Auto) (50-75) % Lymph % (Auto) (25-40) % [place] % (Auto) (3-14) % Eos % (Auto) (2-4) % Baso % (Auto) (0-2) % Neut # (Auto) (3984-1496) /uL Lymph # (Auto) (5760-7949) /uL [place] # (Auto) (0-900) /uL Eos # (Auto) (0-450) /uL Baso # (Auto) (0-100) /uL PT (10.1-12.7) SECONDS INR (0.9-1.3) APTT 84 H* D (26-36) SECONDS Sodium (137-145) mmol/L Potassium (3.4-5.1) mmol/L Chloride (98-107) mmol/L Carbon Dioxide (22-32) mmol/L BUN (7-17) mg/dL Creatinine (0.52-1.04) mg/dL Estimated GFR (>60) mL/min BUN/Creatinine Ratio (6-22) Glucose (80-110) mg/dL Calcium (8.4-10.2) mg/dL Magnesium (1.6-2.3) mg/dL Total Bilirubin (0.2-1.3) mg/dL AST (14-36) IU/L ALT (<35) IU/L Alkaline Phosphatase (38-126) U/L Total Creatine Kinase 170 H (30-135) U/L CK-MB (CK-2) 5.90 H D (<2.37) ng/mL CK-MB (CK-2) Rel Index 3.5 (1.5-5.0) % Troponin I 1.010 H* (0.01-0.034) ng/mL NT-Pro-B Natriuret Pep (<125) pg/mL Total Protein (6.3-8.2) g/dL Albumin (3.5-5.0) g/dL Globulin (1.7-4.1) g/dL Albumin/Globulin Ratio (1.0-2.8) Lipase (23-300) U/L Urine Color Urine Appearance Urine pH (4.5-8.0) Ur Specific [place] (1.000-1.035) Urine Protein (Negative) Urine Glucose (UA) (Negative) g/dL Urine Ketones (NEGATIVE) Urine Occult Blood (Negative) Urine Nitrate (Negative) Urine Bilirubin (NEGATIVE) Urine Urobilinogen (0.2) E.U./dL Ur Leukocyte Esterase (NEGATIVE) Urine RBC (0-5/HPF) Urine WBC (0-5/HPF) Ur Squamous Epith Cells (0-5/HPF) Urine Bacteria (None) Ur Culture Indicated? SARS-CoV-2 (PCR) (Negative) MDM Narrative Medical decision making narrative: Patient's symptoms are certainly concerning for acute coronary syndrome. She is also found to be quite hypertensive. Initial troponin is indeterminate however vising 3rd troponin is positive at 0.19. Blood pressure is quite variable but remains elevated. Patient remains be here in the emergency department. She has coagulopathy with history of multiple PEs requiring extremely high dose of Coumadin up to 16 mg of warfarin daily. INR today is 4.2. CT angio is negative for PE. 1899 Dr. Salmeron, Cardiology has been updated patient's symptoms and test r esults. At this time her situation is slightly tricky but does recommend cardiac catheterization. Recommends holding warfarin and starting heparin when INR is 3 or less. Also recommends hydralazine and chlorthalidone and for blood pressure control. Contraindication for labetalol with decreased heart rate. Patient being placed on multiple list for transfer. However severe critical bed shortage and high unlikely. [2000] (Alan) Patient received in sign out from [Dedrick]. I have reviewed the clinical course and performed an independent history and physical exam. Critical Care Time <Fang Tse, DO - Last Filed: 11/14/21 19:23> Critical Care Time Critical Care Time: Yes Total Critical Care Time: 32 Attestation: The high probability of a clinically significant, sudden or life threatening deterioration of the [cardiovascular] system(s) required my full and direct attention, intervention and personal management. The aggregate critical care time was 32 minutes. This time is in addition to time spent performing reported procedures but includes the following: [x] Data Review and interpretation [x] Patient assessment and monitoring of vital signs [x] Documentation [x] Medication orders and management Discharge Plan Departure Patient Disposition: [facility] Clinical Impression: Acute non-ST elevation myocardial infarction (NSTEMI) Prescriptions: No Action liothyronine 5 mcg Tablet 5 mcg PO DAILY warfarin 4 mg Tablet 8 mg PO DAILY Rx Instructions: 8 mg on MWFSS 10mg T & TH levothyroxine 88 mcg Tablet 88 mcg PO DAILY montelukast 10 mg Tablet 10 mg PO BEDTIME Referrals: Miscellaneous,Doctor, MD [Primary Care Provider] -
[2021-11-13 15:49] LABS: NT-proBNP (BNP-Adult 18+) 148 pg/mL (<125)
[2021-11-13 15:52] LABS: Troponin I 0.075 ng/mL (0.01-0.034)
--- NOTE | 2021-11-13 15:56 | DI.CT.S_ITS ---
PROCEDURE: CT ANGIO CHEST PE PROTOCOL INDICATIONS: chest pain sob with hx multiple PE TECHNIQUE: After the administration of intravenous contrast, 2 mm thick sections acquired from the pulmonary apices to the posterior costophrenic angles. For radiation dose reduction, the following was used: automated exposure control, adjustment of mA and/or kV according to patient size. COMPARISON: None. FINDINGS: Image quality: Excellent. Pulmonary arteries: Pulmonary arteries are normal in size, and demonstrate no intraluminal filling defects to suggest central pulmonary embolism. Lungs and pleura: Lungs are clear. No pleural effusions or pneumothorax. Central and peripheral airways are patent. Mediastinum: Heart size is normal, without pericardial effusion. No mediastinal or hilar adenopathy. Thoracic aorta is normal in caliber and enhancement. Esophagus is normal in caliber, without hiatal hernia. Bones and chest wall: No suspicious bony lesions. Ribs and thoracic spine appear intact throughout. Thyroid gland unremarkable. No axillary or supraclavicular adenopathy. Abdomen: Visualized upper abdominal solid organs appear normal in the early arterial phase of enhancement. IMPRESSION: Unremarkable CT chest angiogram. No evidence of pulmonary embolism, aortic dissection or aneurysm. Approved by: Smith Wilson M.D. on 11/13/2021 at 15:41
[2021-11-13 18:51] LABS: Troponin I 0.191 ng/mL (0.01-0.034)
--- NOTE | 2021-11-13 19:24 | DI.ECHO.S_ITS ---
[facility]---------+ [facility] +---------+ : : [address] [place] : : : : [id number] : : : : Phone: [phone] Echocardiogram Report + + :Name: CORY CANAS Study Date: 11/14/2021 Height: 66 in : :[facility] ReadingLocation: Weight: 190 lb : : Gender: Female BSA: 2.0 m2 : :: 1955 Age: 66 yrs BP: 139/73 mmHg: :Reason For Study: NSTEMI : :Ordering Physician: DEDRICK, : :OPHELIA Performed By: Zara Giordano : :Referring: OPHELIA TSE : + + Interpretation Summary 1) Normal left ventricular thickness, size, wall motion, and systolic function (EF 55-60%). 2) The right ventricle is not well visualized. The right ventricle grossly appears normal in size with probable normal systolic function. 3) No significant valvular abnormalities. 4) No prior Echo available for comparison. Procedure: A two-dimensional transthoracic echocardiogram with color flow and Doppler was performed. The study quality was technically adequate. There is no prior echocardiogram noted for this patient. The patient was in sinus rhythm with heart rates between 53-68 bpm during the exam. Left Ventricle: The left ventricle is normal in size and wall thickness. The ejection fraction is estimated to be 55-60%. Left ventricular systolic function appears normal without focal wall motion abnormalities. Right Ventricle: The right ventricle is not well visualized. The right ventricle grossly appears normal in size with probable normal systolic function. Atria: The left atrial size is normal. Right atrial size is normal. There is no Doppler evidence for an interatrial shunt. Mitral Valve: The mitral valve is normal in structure and function. There is mild mitral annular calcification. There is no mitral regurgitation noted. Aortic Valve: The aortic valve is trileaflet. The aortic valve opens well. There is no aortic valve stenosis. No aortic regurgitation is present. Tricuspid Valve: The tricuspid valve is normal in structure and function. There is trace tricuspid regurgitation. Pulmonary artery pressures cannot be estimated because of the lack of a measurable TR jet velocity. Pulmonic Valve: The pulmonic valve is not well visualized. There is no pulmonic valvular regurgitation. Great Vessels: The aortic root is normal size. The dimensions of the ascending aorta are normal. The IVC is of normal diameter and collapses greater than 50% with a sniff. This suggests a low right atrial pressure of 3 mm Hg. Pericardium/ Pleura There is no pericardial effusion. There is no pleural effusion. MMode/2D Measurements & Calculations LVIDd: 4.5 cm LVOT diam: 2.0 cm LVIDs: 2.8 cm Ao root diam: 3.2 cm FS: 38.7 % asc Aorta Diam: 3.0 cm IVSd: 0.98 cm Ao Arch Diam (Prox Trans): 2.3 cm LVPWd: 1.0 cm LV perdomo. diameter/BSA (cm/m^2): 2.3 LV sys. diameter/BSA (cm/m^2): 1.4 LA A2 area: 19.4 cm2 RA long axis: 4.9 cm LA A4 area: 17.3 cm2 RA area: 15.8 cm2 LA length (vol): 4.8 cm RA vol: 43.2 ml LA vol: 58.9 ml RA : 22.1 ml/m2 LA vol index: 30.1 ml/m2 IVC diam: 1.5 cm Doppler Measurements & Calculations Ao V2 max: 98.7 cm/sec LVOT Max Arley: 70.3 cm/sec Ao V2 mean: 68.7 cm/sec LV V1 max P.0 mmHg Ao max P.9 mmHg LV V1 VTI: 17.1 cm Ao mean P.1 mmHg JORDON(I,D): 2.6 cm2 Ao V2 VTI: 19.6 cm JORDON(V,D): 2.2 cm2 sev ratio: 0.87 JORDON indexed to BSA (cm^2/m^2): 1.3 MV E max arley: 48.4 cm/sec PA V2 max: 86.4 cm/sec MV A max arley: 53.1 cm/sec PA V2 mean: 61.7 cm/sec MV E/A: 0.91 PA mean P.7 mmHg Med Peak E' Arley: 6.7 cm/sec PA pr(Accel): 20.8 mmHg E/E' med: 7.2 Lat Peak E' Arley: 9.0 cm/sec E/E' lat: 5.4 E/e' average: 6.3 MV dec time: 0.26 sec SV(LVOT): 51.7 ml Reading Physician:10:11 AM
[2021-11-13] MEDS: CHLORTHALIDONE 25 MG TABLET PO (20:16)
--- NOTE | 2021-11-13 22:30 | PC.NURSE ---
patient took her home medication montelukast 10mg tablet. provider okayed and aware.
[2021-11-14] VITALS (44 sets, daily range): BP systolic 117–170; BP diastolic 66–89; PULSE 48–79; RESP 10–40; O2SAT 93–98
[2021-11-14 06:38] LABS: Add Manual Diff / Slide Review NO; Basophils Absolute Auto 0 /uL (0-100); Basophils Percent Auto 0.6 % (0-2); Eosinophils Absolute Auto 100 /uL (0-450); Eosinophils Percent Auto 2.1 % (2-4); Hematocrit 39.9 % (36-46); Hemoglobin 13.8 g/dL (12.0-16.0); Lymphocytes Absolute Auto 1400 /uL (1100-4500); Lymphocytes Percent Auto 33.2 % (25-40); Mean Corpuscular HGB Conc 34.5 % (30-36); Mean Corpuscular Hemoglobin 30.4 PG (26-34); Monocytes Absolute Auto 300 /uL (0-900); Monocytes Percent Auto 7.2 % (3-14); Neutrophils Absolute Auto 2400 /uL (1500-7000); Neutrophils Percent Auto 56.9 % (50-75); Platelet Count 239 X10^3/uL (150-400); Red Blood Cell Count 4.54 X10^6/uL (4.0-5.2); Red Cell Distribution Width 13.7 % (11.6-14.8); White Blood Cell Count 4.3 X10^3/uL (4.5-11.0)
[2021-11-14 06:52] LABS: INR 3.2 (0.9-1.3); Prothrombin Time 36.7 SECONDS (10.1-12.7)
[2021-11-14 07:01] LABS: Alanine Aminotransferase 18 IU/L (<35); Albumin 4.2 g/dL (3.5-5.0); Albumin Globulin Ratio 1.3 (1.0-2.8); Alkaline Phosphatase 64 U/L (38-126); Aspartate Aminotransferase 34 IU/L (14-36); BUN Creatinine Ratio 16.1 (6-22); Bilirubin Total 0.7 mg/dL (0.2-1.3); Blood Urea Nitrogen 15 mg/dL (7-17); Calcium 9.1 mg/dL (8.4-10.2); Carbon Dioxide 28 mmol/L (22-32); Chloride 105 mmol/L (98-107); Estimated Glomerular Filt Rate > 60 mL/min (>60); Globulin 3.3 g/dL (1.7-4.1); Glucose 98 mg/dL (80-110); HEMOLYSIS < 15 (0-50); Potassium 3.9 mmol/L (3.4-5.1); Sodium 140 mmol/L (137-145); Total Protein 7.5 g/dL (6.3-8.2)
[2021-11-14 07:54] LABS: Creatine Kinase 170 U/L (30-135)
[2021-11-14] MEDS: HEPARIN DRIP 25,000 UNIT/500 ML IV.SOLN 20 UNIT IV (08:02)
[2021-11-14 08:10] LABS: CKMB % Relative Index 3.5 % (1.5-5.0)
[2021-11-14] MEDS: CHLORTHALIDONE 25 MG TABLET PO (08:13)
[2021-11-14] MEDS: ACETAMINOPHEN 325 MG TABLET 650 MG PO (14:00)
[2021-11-14 14:51] LABS: PTT Partial Thromboplastin Tim 84 SECONDS (26-36)
--- NOTE | 2021-11-14 15:17 | PC.NURSE ---
PTT reported 84, verified with Tejas VERGRAA, per protocol PTTs obtained prior to 12 hours post initiation - do not decrease the infusion unless significant bleeding occurs or the PTT is more than 150 seconds. No bleeding noticed.
--- NOTE | 2021-11-14 15:26 | PC.NURSE ---
Pt noted to be tearfulin room, [id number] at bedside. [place] concern about being away from home, [id number] offering support to pt and reassurance. Educated pt on current plan of care, assured pt care is to standard in the meantime, therapeutic communication utilized.
--- NOTE | 2021-11-14 19:09 | PC.NURSE ---
Attempted call to [facility], per audio visual secretary unit is in shift change and nurse will call back, number provided.
--- NOTE | 2021-11-14 19:35 | PC.NURSE ---
[facility]
== END 2021-11-14 19:22 | disposition short-term general hospital (02) ==
PROVIDERS: Emergency Medicine; Nurse Practitioner Critical Care Medicine; Emergency Provider Emergency Medicine
DX: I21.4 Non-ST elevation (NSTEMI) myocardial infarction (principal); I10 Essential (primary) hypertension; Z79.01 Long term (current) use of anticoagulants; Z20.822 Contact with and (suspected) exposure to COVID-19
CPT/HCPCS: 36415; 71045; 71275; 80053; 81001; 82550; 82553; 83690; 83735; 83880; 84484; 85025; 85610; 85730; 87635; 93005; 93306; 96365; 96366; 99285; 99291; C9803; J1644